=== PATIENT | female | born 1960 | race Caucasian/White ===

== ENCOUNTER 2016-08-10 10:07 | Inpatient (IN) ==
[2016-08-10] MEDS ORDERED: ASPIRIN PO STA (10:17)
--- NOTE | 2016-08-10 10:25 | PROVIDER DOCUMENTATION ---
HPI-Respiratory General - General Chief Complaint: Shortness of Breath Stated Complaint: CHEST PAIN Time Seen by Provider: 08/10/16 10:17 Source: patient Allergies/Adverse Reactions: Patient Allergies Allergy/AdvReac Type Severity Reaction Status Date / Time No Known Allergies Allergy Verified 02/19/16 02:43 Home Medications: Home Medication List Medication Instructions Recorded Confirmed Last Taken Type Pantoprazole [Protonix] 40 mg PO BID #60 tablet 02/22/16 08/10/16 Unknown Rx Citalopram [Celexa] 40 mg PO DAILY 08/10/16 08/10/16 Unknown History Clonazepam [Klonopin] 0.5 mg PO DAILY 08/10/16 08/10/16 08/10/16 History Methocarbamol [Robaxin] 750 mg PO DAILY 08/10/16 08/10/16 Unknown History Sucralfate [Carafate] 1 gm PO TID 08/10/16 08/10/16 Unknown History - History of Present Illness-Resp Nature of Presenting Problem: patient had steroid injection to right elbow last week. Post injection at home patient began to have a rash and short of breath. since then she reports feeling everything going down hill. has had cough( blood at times), weakness, short of breath. reports pain in chest worse with movement, lying down, and breathing. has history of bradycardia and low bp Quality of Pain: reports: tightness Severity in ED: reports: mild, moderate Onset/Duration: reports: abrupt, 1 week ago Timing: reports: still present Context: denies: out of meds, sports/exercise Cough Quality/Degree: reports: mild, moderate, sputum, blood streaked sputum Current Respiratory Medication Therapy: Initiated see nurses note Modifying Factors: worse with: coughing Associated Symptoms: reports: cough, dizziness, fever/chills, shortness of breath, short of breath, wheezing. denies: flu-like symptoms, nasal congestion , nasal drainage Similar Symptoms Previously?: No Recently seen or treated by another doctor?: No Review of Systems - Adult - REVIEW OF SYSTEMS - ADULT Constitutional: reports: chills, fatique Eyes: reports: no symptoms reported Ears, Nose, Mouth & Throat: denies: ear discharge, ear pain, sinus problem, throat pain, throat swelling Cardiovascular: reports: chest pain. denies: palpitations Respiratory: reports: cough, pleurisy, shortness of breath, wheezing Gastrointestinal: reports: no symptoms reported Genitourinary: reports: no symptoms reported Musculoskeletal: reports: muscle aches, muscle weakness Integumentary: reports: no symptoms reported Neurological: reports: dizziness/vertigo. denies: headache/migraines, seizure, syncope Psychiatric: reports: no symptoms reported Endocrine: reports: no symptoms reported Hematologic/Lymphatic: reports: no symptoms reported Allergic/Immunologic: reports: no symptoms reported All Other Systems: Reviewed and Negative Past History - Adult - PAST MEDICAL HISTORY-ADULT Review of Records: reports: Old Records Reviewed, Nursing Assessment Review, Medications Reviewed Respiratory: reports: asthma Gastrointestinal: reports: GERD - PRIOR SURGERIES/PROCEDURES Surgical/Procedure History: reports: hysterectomy, gastric bypass - IMMUNIZATION STATUS Childhood Immunizations: See Nurse Assessment Flu Vaccine: See Nurse Assessment - FAMILY HISTORY Family History: reviewed, not pertinent - SOCIAL HISTORY Smoking: cigarettes, less than 1 pack/day Living Situation: family Physical Exam-General - PHYSICAL EXAM-ADULT Initial Vital Signs Reviewed: Yes - CONSTITUTIONAL General Appearance: alert, anxious - EYES Eyes: PERRL/EOMI, pink conjunctivae - HEAD, EARS, NOSE, MOUTH & THROAT HENMT: normocephalic/atraumatic, moist mucous membranes, normal ENT inspection - NECK Neck: full range of motion, normal inspection - RESPIRATORY Respiratory: no respiratory distress, no accessory muscle use, wheezing, pain on inspiration - CARDIOVASCULAR Cardiovascular: regular rate, rhythm, no gallop, no murmur - GASTROINTESTINAL (ABDOMEN) Abdominal Exam: normal bowel sounds, soft, no organomegaly, no pulsatile mass, tenderness (diffusely) - MUSCULOSKELETAL Extremity: normal range of motion, normal inspection, no pedal edema - SKIN Integumentary: normal color, warm/dry - NEUROLOGIC Neurologic: grossly normal, no motor/sensory deficits - PSYCHIATRIC Psych/Mental Status: oriented x 3, anxious Progress - PLAN OF CARE/RESULTS Progress/Plan/Lab Results: Vital Signs - 8 hr 08/10/16 10:18 08/10/16 13:14 08/10/16 13:33 Temperature 99.3 F Pulse Rate 102 H 92 H Pulse Rate [Sitting] 99 H Pulse Rate [Standing] 100 H Pulse Rate [Supine] 93 H Respiratory Rate 20 18 Blood Pressure 112/80 108/061 Blood Pressure [Sitting] 104/73 Blood Pressure [Standing] 112/69 Blood Pressure [Supine] 100/62 O2 Sat by Pulse Oximetry 97 99 Laboratory Results - last 24 hr 08/10/16 08/10/16 08/10/16 10:45 10:45 10:45 WBC RBC Hgb Hct MCV MCH MCHC RDW Std Deviation Plt Count MPV Immature Gran % (Auto) Neut % (Auto) Lymph % (Auto) [place] % (Auto) Eos % (Auto) Baso % (Auto) Immature Gran # (Auto) Neut # (Auto) Lymph # (Auto) [place] # (Auto) Eos # (Auto) Baso # (Auto) PT INR APTT (Factor Assay) D-Dimer Sodium 133 L Potassium 3.6 Chloride 99 Carbon Dioxide 21 L Anion Gap 14 BUN 8 Creatinine 0.6 Estimated GFR/1.73 m2 > 60 BUN/Creatinine Ratio 13 Glucose 108 H Calculated Osmolality 265 Calcium 8.7 L Magnesium 2.0 Total Bilirubin 0.70 AST 21 ALT 12 Alkaline Phosphatase 137 H Creatine Kinase 25 Troponin T < 0.010 [id number]-Ilevbetuxtj Pept 207 Total Protein 6.9 Albumin 2.7 L Globulin 4.0 Albumin/Globulin Ratio 1.0 TSH Urine Source Urine Color Urine Clarity Urine pH Ur Specific Douglas Urine Protein Urine Ketones Urine Blood Urine Nitrite Urine Bilirubin Urine Urobilinogen Urine WBC Urine Microscopic WBC Ur Epithelial Cells Urine Crystals Urine Bacteria Urine Casts Urine Yeast Urine Glucose 08/10/16 08/10/16 08/10/16 10:45 10:45 10:45 WBC 11.14 H RBC 5.04 Hgb 15.8 Hct 48.7 H MCV 96.6 MCH 31.3 H MCHC 32.4 L RDW Std Deviation 13.7 Plt Count 227 MPV 9.8 Immature Gran % (Auto) 0.2 Neut % (Auto) 75.7 H Lymph % (Auto) 6.9 L [place] % (Auto) 14.7 H Eos % (Auto) 2.2 Baso % (Auto) 0.3 Immature Gran # (Auto) 0.02 Neut # (Auto) 8.44 H Lymph # (Auto) 0.77 L [place] # (Auto) 1.64 H Eos # (Auto) 0.24 Baso # (Auto) 0.03 PT 15.5 INR 1.20 H APTT (Factor Assay) 28.5 D-Dimer 3.48 H Sodium Potassium Chloride Carbon Dioxide Anion Gap BUN Creatinine Estimated GFR/1.73 m2 BUN/Creatinine Ratio Glucose Calculated Osmolality Calcium Magnesium Total Bilirubin AST ALT Alkaline Phosphatase Creatine Kinase Troponin T Ekh-L-Jagjuthnovl Pept Total Protein Albumin Globulin Albumin/Globulin Ratio TSH Urine Source Urine Color Urine Clarity Urine pH Ur Specific Douglas Urine Protein Urine Ketones Urine Blood Urine Nitrite Urine Bilirubin Urine Urobilinogen Urine WBC Urine Microscopic WBC Ur Epithelial Cells Urine Crystals Urine Bacteria Urine Casts Urine Yeast Urine Glucose 08/10/16 08/10/16 13:02 13:25 WBC RBC Hgb Hct MCV MCH MCHC RDW Std Deviation Plt Count MPV Immature Gran % (Auto) Neut % (Auto) Lymph % (Auto) [place] % (Auto) Eos % (Auto) Baso % (Auto) Immature Gran # (Auto) Neut # (Auto) Lymph # (Auto) [place] # (Auto) Eos # (Auto) Baso # (Auto) PT INR APTT (Factor Assay) D-Dimer Sodium Potassium Chloride Carbon Dioxide Anion Gap BUN Creatinine Estimated GFR/1.73 m2 BUN/Creatinine Ratio Glucose Calculated Osmolality Calcium Magnesium Total Bilirubin AST ALT Alkaline Phosphatase Creatine Kinase Troponin T [id number]-Gytierfffqm Pept Total Protein Albumin Globulin Albumin/Globulin Ratio TSH 0.40 Urine Source CLEAN CATCH Urine Color YELLOW Urine Clarity CLEAR Urine pH 7.0 Ur Specific Douglas 1.005 Urine Protein 1+(30 mg/dL) A Urine Ketones NEGATIVE Urine Blood NEGATIVE Urine Nitrite NEGATIVE Urine Bilirubin NEGATIVE Urine Urobilinogen 4+(12 mg/dL) Urine WBC TRACE A Urine Microscopic WBC <10 Ur Epithelial Cells >10 A Urine Crystals NONE SEEN Urine Bacteria 1+ Urine Casts NONE SEEN Urine Yeast NONE SEEN Urine Glucose NEGATIVE Orders Category Date Time Status Cardiac Monitoring DIRECTED Care 08/10/16 10:18 Active ED: Orthostatic Vital Signs (E as directed Care 08/10/16 13:02 Active Oxygen Therapy- ED Nursing DIRECTED Care 08/10/16 10:18 Active Saline Loc NOW Care 08/10/16 10:18 Active ANGIOGRAM/PULMONARY ARTERIES [CT] Stat Exams 08/10/16 16:21 Completed CHEST-2 VIEWS [RAD] Stat Exams 08/10/16 10:18 Completed CBC WITH ELECTRONIC DIFF [HEME] Stat Lab 08/10/16 10:45 Completed CK PROFILE [SP CHEM] Stat Lab 08/10/16 10:45 Completed COMPREHENSIVE METABOLIC PANEL [CHEM] Stat Lab 08/10/16 10:45 Completed D-DIMER PL [COAG] Stat Lab 08/10/16 10:45 Completed MAGNESIUM [CHEM] Stat Lab 08/10/16 10:45 Completed PRO B-NATRIURETIC PEPTIDE Stat Lab 08/10/16 10:45 Completed PROTIME WITH INR PL [COAG] Stat Lab 08/10/16 10:[address] [COAG] Stat Lab 08/10/16 10:45 Completed TROPONIN T Stat Lab 08/10/16 10:45 Completed TSH Stat Lab 08/10/16 13:[address] W/POSS RFLX CULT [URINALYSIS] Stat Lab 08/10/16 13:25 Completed URINE CULTURE [RM] Routine Lab 08/10/16 15:25 Received Aspirin Med 08/10/16 10:17 Discontinued 325 mg PO STAT STA EKG [EKG] Stat Ther 08/10/16 10:18 Draft cta pe study ordered due to elevated dimer Result Diagrams: 08/10/16 10:45 08/10/16 10:45 - EKG 1 Time of EKG reading by physician:: 10:32 EKG Read and Signed by:: Stuart Brunson EKG Interpretation (*Must complete 3 of following elements*): Abnormal Rate: 88 Rhythm: Sinus Rhythm [place]: normal QRS: RBB (incomplete) KS Interval: normal ST Wave: normal - XRAY 1 XRAY Study: Chest Impression: Normal XRAY Interpretation: negative - CT/MRI 1 CT Study: Angiogram (PE STUDY) Impression: Abnormal CT Results: no pe, loculated fluids collection containing gas in up abd - CONSULTS/PCP/HOSPITALIST Notification #1 *Consult/PCP/Hospitalist*: Time Discussed: 17:51 Consult Disposition: Admit Departure - Departure Date of Disposition Decision: 08/10/16 Time of Disposition Decision: 17:54 DIAGNOSIS: Liver abscess Abdominal pain Qualifiers: Abdominal location: generalized Qualified Code(s): R10.84 - Generalized abdominal pain Dyspnea Qualifiers: Dyspnea type: dyspnea on exertion Qualified Code(s): R06.09 - Other forms of dyspnea Disposition: ADMITTED INPATIENT 09 Certified Medical Emergency: Emergent Condition: Stable Referrals and Follow-Ups: Sriram Mason MD [Primary Care Provider] - - Critical Care Note This patient required my direct & personal management of CC.: No
--- NOTE | 2016-08-10 10:42 | EKG Report ---
Test Performed on : 08/10/2016 10:32:52 AM Test Reason : CP Blood Pressure : / mmHG Vent. Rate : 088 BPM Atrial Rate : 088 BPM P-R Int : 154 ms QRS Dur : 094 ms QT Int : 348 ms P-R-T Axes : 069 078 067 degrees QTc Int : 421 ms Sinus rhythm. with marked sinus arrhythmia. Incomplete right bundle branch block Borderline ECG No previous ECGs available Unconfirmed Result
[2016-08-10 10:50] LABS: MANUAL DIFF NEEDED? NO
[2016-08-10 10:53] LABS: BASO% 0.3 % (0.0-0.8); EOS# 0.24 X1000 (0.0-0.7); EOS% 2.2 % (0.0-10.0); HEMATOCRIT 48.7 % (37.0-47.0); HEMOGLOBIN 15.8 g/dL (12.0-16.0); IMM GRAN# 0.02 X1000 (0.0-0.04); IMM GRAN% 0.2 % (0.0-0.5); LYMPH# 0.77 X1000 (1.2-3.4); LYMPH% 6.9 % (20.5-51.1); MCH 31.3 PG (27-31); MCHC 32.4 g/dL (33-37); MCV 96.6 FL (81-99); MONO# 1.64 X1000 (0.11-0.59); MONO% 14.7 % (1.7-9.3); MPV 9.8 FL (7.4-10.4); NEUT% 75.7 % (42.2-75.2); PLT 227 X1000 (130-400); RBC 5.04 XMIL (4.2-5.4)
[2016-08-10 11:13] LABS: AGAP 14; ALBUMIN 2.7 g/dL (3.5-5.0); ALKALINE PHOSPHATASE 137 U/L (32-104); BUN 8 mg/dL (8-22); CALCIUM 8.7 mg/dL (8.8-10.2); CHLORIDE 99 mmol/L (98-107); CK PROFILE 25 U/L (24-173); COSMO 265; GOT 21 U/L (10-30); GPT 12 U/L (10-36); INR 1.2 (0.86-1.15); POTASSIUM 3.6 mmol/L (3.5-5.1); PROTIME 15.5 Seconds (12.1-15.5); SODIUM 133 mmol/L (136-145); TCO2 21 mmol/L (25-35); TOTAL PROTEIN 6.9 g/dL (6.3-8.3)
--- NOTE | 2016-08-10 11:13 | Diag Imaging Result Doc PS360 ---
EXAM: CHEST-2 VIEWS HISTORY: CP TECHNIQUE: PA and lateral COMMENT: There is no evidence of acute cardiac or pulmonary disease. Compared to 02/19/2016 there is been no significant change in the appearance of the chest. IMPRESSION: No acute disease. Electronically signed by Jorge Longoria 08/10/2016 11:10 AM
[2016-08-10 11:14] LABS: PTT PL 28.5 Seconds (22.6-43.9)
[2016-08-10 15:24] LABS: URINE CAST NONE SEEN /LPF; URINE CRYSTAL NONE SEEN /HPF; URINE EPITHELIAL CELLS >10 /HPF (<10); URINE WBC <10 /HPF (<10)
[2016-08-10 15:25] LABS: BILIRUBIN URINE NEGATIVE (NEGATIVE); BLOOD URINE NEGATIVE (NEGATIVE); CLARITY CLEAR (CLEAR); COLOR YELLOW; GLUCOSE URINE NEGATIVE (NEGATIVE); LEUKOCYTES URINE TRACE (NEGATIVE); NITRITE URINE NEGATIVE (NEGATIVE); PROTEIN URINE 1+(30 mg/dL) mg/dL (NEGATIVE); SP GRAVITY URINE 1.005; URINE CULTURE PL NEEDED? YES; URINE SOURCE CLEAN CATCH; UROBILINOGEN URINE 4+(12 mg/dL)
--- NOTE | 2016-08-10 17:23 | Diag Imaging Result Doc PS360 ---
EXAM: ANGIOGRAM/PULMONARY ARTERIES INDICATION: sob, elevated d-dimer COMPARISON: 02/19/2016 FINDINGS: There is no evidence of pulmonary embolism. There is no evidence of aortic dissection or aneurysm. There is no evidence of significant mediastinal or hilar lymphadenopathy. There is minimal subsegmental atelectasis at the lung bases. The lungs are grossly clear, otherwise. There is no significant pleural fluid collection and no pneumothorax. Limited views of the upper abdomen reveal a loculated collection of fluid containing gas droplets anterior and superior to the left hepatic lobe. This is concerning for abscess. The source of which is unknown. It measures approximately 7.2 x 6.4 cm axially. This was not present on the previous study. IMPRESSION: 1.Loculated fluid collection containing gas droplets in the upper abdomen concerning for abscess from an unknown source. 2.No evidence of pulmonary embolism or other definite acute chest pathology. Electronically signed by Ranjith Canchola 08/10/2016 5:21 PM
[2016-08-10] MEDS ORDERED: TYLENOL PO PRN (20:07)
[2016-08-10] MEDS ORDERED: ZOFRAN IV PRN (20:07)
[2016-08-10] MEDS: DILAUDID IV PRN (22:07)
[2016-08-10] MEDS: ZOSYN 3.375 GM/NS 3.375 GM/50 ML IVPB IV SCH (22:07)
[2016-08-11] MEDS: DILAUDID IV PRN ×2 (04:05→11:51)
[2016-08-11] MEDS: ZOSYN 3.375 GM/NS 3.375 GM/50 ML IVPB IV SCH ×2 (04:10→11:04)
[2016-08-11 05:25] VITALS: BP 91/52
[2016-08-11] MEDS ORDERED: NS 1,000 ML IV SCH (05:50)
--- NOTE | 2016-08-11 08:09 | Diag Imaging Result Doc PS360 ---
EXAM: ABDOMEN/PELVIS W/CONTRAST INDICATION: liver abscess, iv and oral COMPARISON: 02/19/2016 FINDINGS: There is a prominent collection of fluid and gas adjacent to the left hepatic lobe measuring up to 7.9 x 7.6 cm axially that is consistent with abscess. It is largely anterior and superior to the left hepatic lobe. A thin tract of fluid extends from the abscess along the falciform ligament. The source of the abscess appears to be a small loop of bowel in the upper abdomen at and to the right of midline, which exhibits wall thickening and a small fluid collection in the wall of the bowel that abuts the left hepatic lobe. This is the same site of a perforated ulcer on the previous study. There has been a prior gastric bypass. There are several prominent lymph nodes in the upper abdomen, assumed to be reactive. The gallbladder and common bile duct are unremarkable. There is a small stable left adrenal nodule that probably represents an adenoma. There is a small amount of fluid that is layering in the pelvis. There is mild uncomplicated diverticulosis coli. The remainder of the solid viscera of the abdomen and pelvis and the remainder of the GI tract are essentially unremarkable. IMPRESSION: 1.Prominent abscess adjacent to the left hepatic lobe. The source of the abscess appears to be an adjacent loop of bowel where there was a previous perforated ulcer. 2.Other incidental/nonacute findings detailed above. Electronically signed by Ranjith Canchola 08/11/2016 8:07 AM
[2016-08-11] MEDS ORDERED: KLONOPIN PO ONE (11:08)
[2016-08-11] MEDS ORDERED: KLONOPIN PO PRN (11:08)
[2016-08-11] MEDS ORDERED: PHENERGAN IV PRN (11:11)
[2016-08-11] MEDS ORDERED: SODIUM CHLORIDE 0.9% INJ PRN (11:11)
[2016-08-11] MEDS ORDERED: SODIUM CHLORIDE 0.9% INJ SCH (11:15)
[2016-08-11] MEDS ORDERED: PROTONIX IV SCH ×2 (11:15→11:30)
[2016-08-11] MEDS ORDERED: ADVAIR 500/50 DISKUS INH PRN (11:21)
[2016-08-11] MEDS ORDERED: ATIVAN IV PRN (11:25)
[2016-08-11 12:21] LABS: HEMATOCRIT 40.9 % (37.0-47.0); HEMOGLOBIN 13.6 g/dL (12.0-16.0); MCH 32.4 PG (27-31); MCHC 33.3 g/dL (33-37); MCV 97.4 FL (81-99); MPV 9.8 FL (7.4-10.4); RBC 4.2 XMIL (4.2-5.4)
[2016-08-11 12:59] LABS: AGAP 10; ALBUMIN 2.7 g/dL (3.5-5.0); ALKALINE PHOSPHATASE 120 U/L (32-104); BUN 9 mg/dL (8-22); CALCIUM 7.7 mg/dL (8.8-10.2); CHLORIDE 101 mmol/L (98-107); COSMO 269; GOT 13 U/L (10-30); GPT 11 U/L (10-36); POTASSIUM 3.3 mmol/L (3.5-5.1); SODIUM 135 mmol/L (136-145); TCO2 23 mmol/L (25-35); TOTAL PROTEIN 5.1 g/dL (6.3-8.3)
--- NOTE | 2016-08-11 13:18 | HISTORY AND PHYSICAL ---
CHIEF COMPLAINT: Abdominal pain. HISTORY OF PRESENT ILLNESS: This is a 56-year-old female status post gastric bypass who came in with pain in her abdomen, also shortness of breath. She has had cough, reportedly bloody at times, weakness, shortness of breath, pain, reportedly a history of bradycardia , and low BP. She had a steroid injection of her elbow last week. The patient has a history of abdominal issues. She was admitted in February of last year, and there was a concern at that time for possible perforated ulcer, but I think she improved somewhat, and she was observed, given fluids. She tolerated diet and went home. She does say she had significant discomfort intermittently since that time. She has seen several physicians. Dr. Molina apparently did an upper and lower GI, which was unremarkable. She reports a history of an ulcer in her large intestine or mass that was noted by her [employer] doctor, Dr. Corbett, but was not noted on colonoscopy. She has seen Dr. Saucedo, actually, this year, and has had an EGD, a possible colonoscopy again that was not remarkable. There was no evidence of perforation or anything like that. CT scan yesterday did show a large fluid collection associated with a left hepatic lobe and small intestine which may be an abscess or fluid collection related to her perforated duodenal ulcer, so she was admitted for further treatment. There was some concern that maybe it was a loop of small bowel filled with fluid, so she had a repeat scan with oral contrast and I think it just confirmed that she had the fluid collection to begin with. The patient was admitted for further treatment. PAST MEDICAL HISTORY: Gastric bypass. She denies diabetes, hypertension. She does have asthma, it looks like, and probably chronic anxiety, PTSD. She has a history of breast cancer 20 years ago. PAST SURGICAL HISTORY: Again, she has had a hysterectomy. She had a hysterectomy revision associated with a possible mass that had been noted by Dr. Bridges, but it was benign. There were apparently no major issues associated with that. SOCIAL HISTORY: She does smoke about half a pack a day. No alcohol. 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 ALLERGIES: No known drug allergies. MEDICATIONS: She currently takes Celexa 40 daily, Klonopin 0.5 b.i.d., Advair, Robaxin, Protonix, and sucralfate. REVIEW OF SYSTEMS: Otherwise negative. PHYSICAL EXAMINATION: VITAL SIGNS: Blood pressure 91/52, heart rate is 79, respiratory rate 18, temperature 98.5, 94% on room air. GENERAL: Well-developed female in no acute distress. HEENT: Head exam was normocephalic, atraumatic. Eyes: Pupils equal, round and reactive to light. Extraocular movements were intact. Ear, nose, and throat: Moist mucous membranes. NECK: Supple. CARDIOVASCULAR: Regular rate and rhythm, no murmurs, gallops, or rubs. PULMONARY: Bilateral breath sounds. Clear to auscultation. GI: Soft, nontender, nondistended. Bowel sounds were positive. EXTREMITIES: No clubbing or cyanosis. LYMPHATICS: No peripheral edema. NEUROLOGICAL: Nonfocal. LABORATORY DATA: She had a little bit of a white count, 11.5. Hemoglobin and hematocrit 15 and 48. D-dimer 3.48. IMAGING: CT scan showed a 7 x 7 cm abscess. ASSESSMENT: This is a 56-year-old female with a history of hypertension, gastric bypass, presenting with a large fluid collection, presumed abscess; reviewing previous CT scan from admission on 02/23 maybe related to a perforated gastric ulcer 1. Large abdominal Fluid collection, likley abscess, possibly associated with peptic ulcer. We will continue to follow. N.P.O., IV antibiotics. We will get a surgical evaluation but pt would prefer to go to for intervention; she may indeed need CT guided drainage versus ope procedure. We will discuss with the primary team at and continue to follow. cc: Walter Razo MD MTDJame
--- NOTE | 2016-08-11 17:35 | DISCHARGE SUMMARY ---
ADMISSION DATE: 08/10/2016 DISCHARGE DATE: 08/11/2016 DIAGNOSES: 1. Fluid collection, abscess, possibly associated with peptic ulcer micro perforation. 2. Asthma. 3. Posttraumatic stress disorder. 4. Breast cancer 20 years ago. DIAGNOSTICS: 1. On 08/10/2016, pulmonary angiogram revealed loculated fluid collection containing gas droplets in the upper abdomen concerning for abscess. No evidence of pulmonary embolism or other definite acute chest pathology. 2. CT of the abdomen and pelvis with IV and oral contrast revealed prominent abscess adjacent to the left hepatic lobe. The source of the abscess appears to be an adjacent loop of bowel where there was a previous perforated ulcer, it is 7.9 x 7.6 cm actually, it is consistent with an abscess, it is anterior superior to the left hepatic lobe. 3. A 08/10/2016 chest x-ray revealed no acute disease. HOSPITAL COURSE: Ms. Mena presented to the emergency room complaining of abdominal pain and shortness of breath. CT scan revealed a mass versus abscess. We did obtain blood cultures and urine cultures. She was n.p.o. We did consult [facility], as well as the hospitalist. They did accept the patient, so she will be transferred for further management. Of note, the patient did have a D-dimer of 3.48, and CT angiogram did reveal no DVT. DISCHARGE PHYSICAL EXAMINATION: Cardiovascular: Regular rate and rhythm. S1 and S2 appreciated. Pulmonary: Breath sounds are clear. No increased work of breathing noted. Gastrointestinal: Abdomen is soft, nontender, nondistended. Bowel sounds in all 4 quadrants. Extremities: No clubbing, cyanosis, or edema. Pulses are palpable x4. Calves are nontender. DISCHARGE MEDICATIONS: Normal saline at 125, Zosyn 3.375 q.6h hours, Protonix 40 mg IV q.12h, Zofran 4 IV q.4 hours p.r.n., Ativan 0.5 IV q.4 hours p.r.n., Dilaudid 1 mg q.3 hours p.r.n., Advair 500/50 one puff b.i.d. p.r.n. DISCHARGE VITAL SIGNS: Blood pressure is 110/56 with a heart rate of 80, respirations are 18, temperature is 98.8 degrees oral with room air saturations 94%-96%. DISPOSITION: She is being discharged and transferred to [facility] for further evaluation and treatment. This is a greater than 30 minutes discharge from 1:00 to 1:33. Dictated by SAPPHIRE Cochran for Walter Razo MD cc: SAPPHIRE Cochran MD pt examined, agree with [facility]
== END 2016-08-11 13:15 | disposition short-term general hospital (02) ==
LOC: P.MEDSURG 10:07 → P.ED 10:07 → OBSVTOIN 10:08
PROVIDERS: ATTEND Internal Medicine